=== PATIENT | male | born 1955 | race African-American/Black ===

== ENCOUNTER 2018-04-23 21:55 | Emergency (ER) | payer MEDICAID, OTHER ==
[~2018-04-23] VITALS: Ht 170.2 cm; Wt 81.6 kg
[~2018-04-23 21:55] MED LIST: ATENPOW10; LISIPOW
[2018-04-23] MEDS ORDERED: IOHEXOL 300 MG/ML 100ML BOTTLE IJ ONE (22:09)
[2018-04-23] MEDS ORDERED: ONDANSETRON HCL 4 MG/2 ML VIAL IV ONE (22:45)
[2018-04-23] MEDS ORDERED: HYDROmorphone HCL 2 MG/ML VL IV ONE (22:45)
[2018-04-23] MEDS ORDERED: NALBUPHINE HCL 10 MG/1ml INJECTION IV ONE (23:00)
[2018-04-23 23:36] LABS: Basophils # (auto) 0.1 uL; Basophils % (auto) 0.8 % (0.0-2.0); Eosinophils # (auto) 0.2 uL; Eosinophils % (auto) 1.9 % (0.0-7.0); Hemoglobin 11.6 g/dL (13.5-17.5); Mean Corpuscular Hemoglobin 29.4 pg (28.0-32.0); Mean Corpuscular Hgb Conc. 33.2 g/dL (32.0-36.0); Mean Corpuscular Volume 88.7 fL (80.0-100.0); Monocytes # (auto) 0.9 uL; Monocytes % (auto) 9.3 % (0.0-12.0); Neutrophils # (auto) 7.8 uL; Platelet Count (auto) 301 10^3/uL (140-450); Red Blood Cells 3.95 10^6/uL (4.5-5.90); Red Cell Distribution Width 13.6 % (11.8-14.3)
[2018-04-23 23:50] LABS: INR 0.93 (0.9-1.15); Partial Thromboplastin Time 28.8 sec (23.78-33.04)
[2018-04-24 00:03] LABS: Albumin 3.7 g/dL (3.4-5.0); BUN/Creatinine Ratio 15.7; Potassium 3.9 mmol/L (3.5-5.1)
[2018-04-24 00:05] VITALS: BP 109/71
[2018-04-24 00:05] LABS: Bilirubin, Total 0.4 mg/dL (0.2-1.0); Total Protein 6.9 g/dL (6.4-8.2)
== END 2018-04-24 01:51 | disposition home or self-care (01) ==
LOC: EDBD 21:55 → ER 22:01
DX: M54.16 Radiculopathy, lumbar region (principal); I71.4 Abdominal aortic aneurysm, without rupture; F17.210 Nicotine dependence, cigarettes, uncomplicated; I10 Essential (primary) hypertension; Z88.6 Allergy status to analgesic agent
CPT/HCPCS: 36415; 71045; 71260; 74177; 80053; 85025; 85610; 85730; 86850; 86900; 86901; 96374; 96375; 99285; J2300; J2405; Q9967; 93005